=== PATIENT | female | born 1990 | race Caucasian/White ===

== ENCOUNTER 2022-04-12 13:15 | Emergency (ER) | payer OTHER ==
[~2022-04-12] VITALS: Ht 165.1 cm; Wt 122.5 kg
[2022-04-12] MEDS ORDERED: LABETALOL HCL1 GM MC (13:31)
== END 2022-04-12 18:31 | disposition home or self-care (01) ==
LOC: ER 13:15
DX: O21.9 Vomiting of pregnancy, unspecified (principal); Z91.013 Allergy to seafood; O10.911 Unspecified pre-existing hypertension complicating pregnancy, first trimester; Z3A.08 8 weeks gestation of pregnancy

== ENCOUNTER 2022-09-05 07:48 | Outpatient (CLI) | payer OTHER ==
[~2022-09-05 07:48] MED LIST: LABETALOL HCL1 GM MC
== END 2022-09-05 08:46 | disposition home or self-care (01) ==
LOC: NST 07:48
PROVIDERS: ATTEND Obstetrics & Gynecology
DX: Z34.83 Encounter for supervision of other normal pregnancy, third trimester (principal)

== ENCOUNTER 2022-10-03 07:34 | Outpatient (CLI) | payer OTHER | END 2022-10-03 08:18 | disposition home or self-care (01) | LOC: NST 07:34 | PROVIDERS: ATTEND Obstetrics & Gynecology Gynecology | DX: Z34.83 Encounter for supervision of other normal pregnancy, third trimester (principal) ==

== ENCOUNTER 2022-10-17 10:42 | Outpatient (CLI) | payer OTHER | END 2022-10-17 11:32 | disposition home or self-care (01) | LOC: NST 10:42 | PROVIDERS: ATTEND Obstetrics & Gynecology Maternal & Fetal Medicine | DX: Z34.83 Encounter for supervision of other normal pregnancy, third trimester (principal) ==

== ENCOUNTER 2022-10-31 07:23 | Outpatient (CLI) | payer OTHER | END 2022-10-31 08:00 | disposition home or self-care (01) | LOC: NST 07:23 | PROVIDERS: ATTEND Obstetrics & Gynecology | DX: Z34.83 Encounter for supervision of other normal pregnancy, third trimester (principal) ==

== ENCOUNTER 2022-11-01 07:57 | Outpatient (CLI) | payer OTHER | END 2022-11-01 08:59 | disposition home or self-care (01) | LOC: NST 07:57 | PROVIDERS: ATTEND Obstetrics & Gynecology | DX: Z34.83 Encounter for supervision of other normal pregnancy, third trimester (principal) ==

== ENCOUNTER 2022-11-04 09:54 | Outpatient (CLI) | payer OTHER | END 2022-11-04 10:48 | disposition home or self-care (01) | LOC: NST 09:54 | PROVIDERS: ATTEND Obstetrics & Gynecology | DX: Z34.83 Encounter for supervision of other normal pregnancy, third trimester (principal) ==